=== PATIENT | male | born 1985 | race Caucasian/White ===

== ENCOUNTER 2018-11-19 20:18 | Emergency (ER) | payer SELFPAY ==
[~2018-11-19] VITALS: Ht 167.6 cm; Wt 72.4 kg
[~2018-11-19 20:18] MED LIST: ATOR40TA68 PO; CYCL10TA7 PO; DICL50TA11 PO
[2018-11-19 20:23] VITALS: Ht 167.6 cm; Wt 72.4 kg
[2018-11-20] MEDS ORDERED: KETOROLAC 30 MG INJ IM STA (01:13)
--- NOTE | 2018-11-20 03:07 | ERD ---
ER Documentation Chief Complaint Chief Complaint S/P [facility] X2HRS, RIGHT BACK INJ, NO MEDS TAKEN ROS All systems reviewed and are negative except as per history of present illness. Medications Home Meds Reported Medications Diclofenac Sodium* (Diclofenac Sodium*) 50 Mg Tablet.dr, 50 MG PO BID, #60 TAB 02/01/16 Cyclobenzaprine Hcl* (Cyclobenzaprine Hcl*) 10 Mg Tablet, 10 MG PO TID, #90 TAB 02/01/16 Atorvastatin* (Atorvastatin*) 40 Mg Tablet, 40 MG PO QHS, #30 TAB 02/01/16 Allergies Allergies: Coded Allergies: Penicillins (Verified Allergy, Unknown, 01/31/16) codeine (Verified Allergy, Unknown, 02/01/16) PMhx/Soc History of Surgery: Yes (Lumbar spinal fusion, cholecystectomy) Anesthesia Reaction: No Hx Neurological Disorder: No Hx Respiratory Disorders: No Hx Cardiac Disorders: Yes (HLD) Hx Psychiatric Problems: No Hx Miscellaneous Medical Probl: No Hx Alcohol Use: Yes Hx Substance Use: No Hx Tobacco Use: No Physical Exam Vitals Vital Signs Date Temp Pulse Resp B/P (MAP) Pulse Ox O2 O2 Flow FiO2 Time Delivery Rate 11/19/18 97.8 107 19 133/71 100 20:23 (91) Physical Exam Const: No acute distress Head: Atraumatic Eyes: Normal Conjunctiva ENT: Normal External Ears, Nose and Mouth. Neck: Full range of motion. No meningismus. Resp: Clear to auscultation bilaterally Cardio: Regular rate and rhythm, no murmurs Abd: Soft, non tender, non distended. Normal bowel sounds Skin: No petechiae or rashes Back: No midline or flank tenderness Ext: No cyanosis, or edema Neur: Awake and alert Psych: Normal Mood and Affect Result Diagram: 11/20/1811211/20/18 0113 Results 24 hrs Laboratory Tests Test 11/20/18 01:13 White Blood Count 16.0 10^3/ul Red Blood Count 4.88 10^6/ul Hemoglobin 15.0 g/dl Hematocrit 44.5 % Mean Corpuscular Volume 91.2 fl Mean Corpuscular Hemoglobin 30.7 pg Mean Corpuscular Hemoglobin Concent 33.7 g/dl Red Cell Distribution Width 12.4 % Platelet Count 254 10^3/UL Mean Platelet Volume 10.2 fl Immature Granulocytes % 0.600 % Neutrophils % 78.0 % Lymphocytes % 12.5 % Monocytes % 7.8 % Eosinophils % 0.8 % Basophils % 0.3 % Nucleated Red Blood Cells % 0.0 /100WBC Immature Granulocytes # 0.100 10^3/ul Neutrophils # 12.4 10^3/ul Lymphocytes # 2.0 10^3/ul Monocytes # 1.3 10^3/ul Eosinophils # 0.1 10^3/ul Basophils # 0.1 10^3/ul Nucleated Red Blood Cells # 0.0 10^3/ul Urine Color YELLOW Urine Clarity SLIGHTLY CLOUDY Urine pH 6.0 Urine Specific Tabiona 1.016 Urine Ketones NEGATIVE mg/dL Urine Nitrite NEGATIVE mg/dL Urine Bilirubin NEGATIVE mg/dL Urine Urobilinogen 2+ mg/dL Urine Leukocyte Esterase NEGATIVE Saba/ul Urine Microscopic RBC 1 /HPF Urine Microscopic WBC 1 /HPF Urine Amorphous Crystals FEW /HPF Urine Bacteria FEW /HPF Urine Hemoglobin NEGATIVE mg/dL Urine Glucose NEGATIVE mg/dL Urine Total Protein NEGATIVE mg/dl Sodium Level 141 mmol/L Potassium Level 4.0 mmol/L Chloride Level 99 mmol/L Carbon Dioxide Level 30 mmol/L Anion Gap 12 Blood Urea Nitrogen 13 mg/dl Creatinine 0.99 mg/dl Est Glomerular Filtrat Rate mL/min > 60 mL/min Glucose Level 106 mg/dl Calcium Level 10.6 mg/dl Total Bilirubin 0.1 mg/dl Direct Bilirubin 0.00 mg/dl Indirect Bilirubin 0.1 mg/dl Aspartate Amino Transf (AST/SGOT) 39 IU/L Alanine Aminotransferase (ALT/SGPT) 102 IU/L Alkaline Phosphatase 81 IU/L Total Protein 8.2 g/dl Albumin 4.6 g/dl Globulin 3.60 g/dl Albumin/Globulin Ratio 1.27 Lipase 102 U/L Current Medications Medications Dose Sig/Marva Start Time Status Last (Trade) Ordered Route PRN Stop Time Admin Dose Reason Admin Ketorolac 30 mg ONCE STAT 11/20/18 DC 11/20/18 Tromethamine IM 01:13 01:34 (Toradol) 11/20/18 01:15 Departure Diagnosis: Primary Impression: Flank pain Condition: Fair Patient Instructions: Flank Pain, Uncertain Cause Referrals: [facility] YOU HAVE RECEIVED A MEDICAL SCREENING EXAM AND THE RESULTS INDICATE THAT YOU DO NOT HAVE A CONDITION THAT REQUIRES URGENT TREATMENT IN THE EMERGENCY DEPARTMENT. FURTHER EVALUATION AND TREATMENT OF YOUR CONDITION CAN WAIT UNTIL YOU ARE SEEN IN YOUR DOCTORS OFFICE WITHIN THE NEXT 1-2 DAYS. IT IS YOUR RESPONSIBILITY TO MAKE AN APPOINTMENT FOR FOLOW-UP CARE. IF YOU HAVE A PRIMARY DOCTOR --you should call your primary doctor and schedule an appointment IF YOU DO NOT HAVE A PRIMARY DOCTOR YOU CAN CALL OUR PHYSICIAN REFERRAL HOTLINE AT IF YOU CAN NOT AFFORD TO SEE A PHYSICIAN YOU CAN CHOSE FROM THE FOLLOWING [facility] [address] [facility] [address] [facility] [address] [facility] [address] [facility] [address]. [facility]. [address] Additional Instructions: Call your primary care doctor TOMORROW for an appointment during the next 1-2 days.See the doctor sooner or return here if your condition worsens before your appointment time. JOSIE BRAVO DO Nov 20, 2018 03:07
[2018-11-20 03:15] VITALS: BP 126/88; PULSE 105; RESP 20
== END 2018-11-20 03:15 | disposition home or self-care (01) ==
LOC: FTE 20:18
DX: R10.9 Unspecified abdominal pain (principal)
CPT/HCPCS: 36415; 74176; 80053; 81001; 81003; 83690; 85025; 96372; 99285; J1885